=== PATIENT | male | born 1950 | race Caucasian/White ===

== ENCOUNTER → 2017-03-17 | Outpatient (CLI) | payer OTHER | LOC: BRMIMAGING 08:33 | PROVIDERS: ATTEND Internal Medicine | DX: M19.041 Primary osteoarthritis, right hand (principal); M19.042 Primary osteoarthritis, left hand | CPT/HCPCS: 73130-PO ==

== ENCOUNTER 2017-07-02 09:12 | Day surgery (SDC) | payer OTHER ==
[2017-07-02] MEDS ORDERED: FAMOTIDINE 20 MG TAB PO ONE (09:19)
[2017-07-02] MEDS ORDERED: diphenhydrAMINE 25 MG CAP PO ONE ×2 (09:19→09:34)
[2017-07-02] MEDS ORDERED: NS 1,000 ML IV ONE (09:19)
[2017-07-02] MEDS ORDERED: ASPIRIN EC 325 MG TAB PO ONE ×2 (09:19→09:34)
[2017-07-02] MEDS ORDERED: DIAZEPAM 5 MG TAB PO ONE (09:19)
--- NOTE | 2017-07-02 09:29 | CPEKG ---
Heart Rate: 70 RR Interval: 857 P-R Interval: 160 QRSD Interval: 82 QT Interval: 348 QTC Interval: 376 P [place]: 54 QRS [place]: 31 T Wave [place]: -15 EKG Severity - BORDERLINE ECG - EKG Impression: SINUS RHYTHM EKG Impression: BORDERLINE T ABNORMALITIES, DIFFUSE LEADS Electronically Signed By: Saji Dempsey 03-Jul-2017 13:11:59
[2017-07-02] MEDS ORDERED: FAMOTIDINE 20 MG TAB ONE (09:34)
[2017-07-02] MEDS ORDERED: DIAZEPAM 5 MG TAB ONE (09:34)
[2017-07-02 09:53] LABS: % IMMATURE GRANULYOCYTES 0.6 % (0.0-1.1); ABSOLUTE IMMATURE GRANULOCYTES 0.03 10^3/uL (0.00-0.10); ADD DIFF? NO; ADD MORPH? NO; ADD SCAN? NO; ATYPICAL LYMPHOCYTE FLAG 0 (0-99); FRAGMENT RBC FLAG 0 (0-99); HEMATOCRIT 44.7 % (40.0-51.0); LEFT SHIFT FLG 0 (0-99); LIPEMIA HEMOLYSIS FLAG 90 (0-99); MEAN CELL HEMOGLOBIN 31.1 pg (27.9-34.1); MEAN CELL HEMOGLOBIN CONCENTR. 35.8 g/dL (32.4-36.7); MEAN PLATELET VOLUME 9.6 fL (8.7-11.7); PLATELET CLUMPS FLAG 0 (0-99); PLATELET COUNT 164 10^3/uL (150-400); RED BLOOD CELL COUNT 5.14 10^6/uL (4.40-6.38); RED CELL DISTRIBUTION WIDTH 12.5 % (11.5-15.2)
[2017-07-02 10:02] LABS: INR 1.03 (0.83-1.16); PROTIME(PATIENT) 13.4 SEC (12.0-15.0)
[2017-07-02] MEDS ORDERED: fentaNYL 100 MCG/2 ML INJ ONE ×2 (10:09→12:05)
[2017-07-02] MEDS ORDERED: LIDOCAINE 1% 300 MG/30 ML SDV ONE (10:09)
[2017-07-02] MEDS ORDERED: MIDAZOLAM 2 MG/2 ML VIAL ONE ×2 (10:09→11:51)
[2017-07-02] MEDS ORDERED: IOPAMIDOL (ISOVUE-370) 150 ML BTL IV ONE (10:10)
[2017-07-02 10:17] LABS: ANION GAP 10 mEq/L (8-16); CARBON DIOXIDE 20 mEq/l (22-31); CHLORIDE 110 mEq/L (97-110); CHOLESTEROL 164 mg/dL (140-220); CHOLESTEROL/HDL RATIO 3.64 RATIO (1.00-4.97); GLOMERULAR FILTRATION RATE > 60; GLUCOSE 102 mg/dL (70-100); HIGH DENSITY LIPOPROTEIN 45 mg/dL (40-65); LOW DENSITY LIPOPROTEIN 99 mg/dL (80-100); MAGNESIUM 2.1 mg/dL (1.6-2.3); NON-HIGH DENSITY LIPOPROTEIN 119 mg/dL (90-129); POTASSIUM 4.6 mEq/L (3.5-5.2); SODIUM 140 mEq/L (134-144); TRIGLYCERIDE 104 mg/dL (40-150); VERY LOW DENSITY LIPOPROTEINS 20 mg/dL (8-25)
--- NOTE | 2017-07-02 10:54 | PDPROPOC ---
Sedation Plan of Care Sedation Plan of Care: vital signs stable, mental status noted, patient educated of risks, benefits, alternatives, patient can tolerate sedation ASA Classification: ASA 2 Planned drugs: fentanyl, midazolam Mallampati Score: Class 2 Mallampati Reference Image: Patient passed 3-3-2 rule?: Yes
--- NOTE | 2017-07-02 10:54 | PDGENHP ---
History & Physical History of Present Illness: 65 year old with hx of CAD with PCI to the RCA in 2008 with new, moderate area of ischemia in the inferior wall coupled with abnormal ecg changes with exercise. Pertinent Past, Social, Family History: PMH: CAD, HTN, Hyperlipidemia Relevant Physical Exam: Awake, alert, appropriate.
[2017-07-02] MEDS ORDERED: HEPARIN 10,000 UNIT/10 ML MDV ONE (12:01)
[2017-07-02] MEDS ORDERED: VERAPAMIL 5 MG/2 ML VIAL ONE (12:01)
[2017-07-02] MEDS ORDERED: ATROPINE SULFATE 1 MG/10 ML SYR IVP PRN (13:40)
[2017-07-02] MEDS ORDERED: ONDANSETRON 4 MG/2 ML VIAL IVP PRN (13:40)
[2017-07-02] MEDS ORDERED: NITROGLYCERIN 0.4 MG BTL SL PRN (13:40)
--- NOTE | 2017-07-02 23:06 | CPIP ---
[f rep st] INVASIVE CARDIAC PROCEDURE PROCEDURE PERFORMED: Diagnostic left heart catheterization. INDICATION FOR PROCEDURE: Known history of coronary artery disease with high risk findings on exerci se nuclear stress test, including 1-[address]-segment depression and new evidence of anterior ischemia in the apical, mid and basal wall, which has changed [facility] with previous PCI to the RCA in 2008. DETAILS OF PROCEDURE: After informed consent was obtained, patient was brought to the cardiac cathet erization lab where he was prepped and draped in a sterile fashion. Access to the right common femor al artery was obtained; however, a wire was unable to be threaded. Several attempts were made, unsuc cessfully. Attempts were made to cannulate the left common femoral artery. This artery was successf ully cannulated. Again, wire was unable to be threaded. Access site was changed to the left radial artery. After Chad test was performed, the artery was prepped and draped in a sterile fashion. A 5 -Romansh sheath was placed in the right common femoral artery without complications. A JR3.5 was used to cannulate the right coronary artery. Images were obtained in multiple projections. The JR3.5 was exchanged over a guidewire for a JL3.5. This was used to cannulate the left main. I mages of the left coronary anatomy were obtained in multiple projections. JL3.5 catheter was exchang ed over a guidewire. With attempts to perform pigtail catheterization there was resistance on the wi re and further attempts at pigtail catheterization were aborted. FINDINGS: 1. Left main, normal size and caliber. It bifurcates into a left anterior descending and left circu mflex coronary artery. There is no evidence of coronary disease within the left main. 2. Left anterior descending artery demonstrates mild luminal irregularities with no evidence of flow -limiting stenosis. 3. The circumflex vessel gives rise to a moderate-size first obtuse marginal branch. There are mild luminal irregularities within the circumflex vessel and obtuse marginal branch. No flow-limiting co ronary disease. 4. Right coronary artery is a large-caliber, dominant vessel that bifurcates into PDA and PLV branch . There are mild luminal irregularities throughout the vessel. There is approximately a 10% to 20% in-stent stenosis in the mid right coronary artery with no evidence of flow-limiting coronary artery disease. CONCLUSION: 1. Patent stents to the right coronary artery. 2. Mild luminal irregularities. 3. No flow-limiting coronary artery disease. PLAN: Continue optimal medical management. 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 /[id number]/MODL
== END 2017-07-02 16:34 | disposition home or self-care (01) ==
LOC: FCATH 09:12
PROVIDERS: ATTEND Internal Medicine Cardiovascular Disease
PROC: B2111ZZ Fluoroscopy of Multiple Coronary Arteries using Low Osmolar Contrast (ICD-10-PCS; principal; 2017-07-02)
PROC: 4A023N7 Measurement of Cardiac Sampling and Pressure, Left Heart, Percutaneous Approach (ICD-10-PCS; principal; 2017-07-02)
DX: R94.31 Abnormal electrocardiogram [ECG] [EKG] (principal); I25.10 Atherosclerotic heart disease of native coronary artery without angina pectoris; Z95.5 Presence of coronary angioplasty implant and graft; I10 Essential (primary) hypertension; E78.5 Hyperlipidemia, unspecified
CPT/HCPCS: 93005; 93454; C1769; J1644; J2250; J3010; Q9967

== ENCOUNTER → 2017-11-12 | Outpatient (CLI) | payer OTHER | LOC: BRMIMAGING 11:00 | PROVIDERS: ATTEND Family Medicine | DX: J44.9 Chronic obstructive pulmonary disease, unspecified (principal) | CPT/HCPCS: 71046-PO ==

== ENCOUNTER → 2017-12-30 | Outpatient (CLI) | payer OTHER | LOC: BRMIMAGING 14:10 | PROVIDERS: ATTEND Family Medicine | DX: J40 Bronchitis, not specified as acute or chronic (principal) | CPT/HCPCS: 71046-PO ==

== ENCOUNTER → 2018-06-16 | Outpatient (CLI) | payer OTHER | LOC: BHLMT 13:30 | PROVIDERS: ATTEND Internal Medicine Interventional Cardiology | DX: I25.10 Atherosclerotic heart disease of native coronary artery without angina pectoris (principal); I77.810 Thoracic aortic ectasia; E78.00 Pure hypercholesterolemia, unspecified | CPT/HCPCS: 93005-PO ==

== ENCOUNTER → 2018-06-18 | Outpatient (CLI) | payer OTHER | LOC: BHFA 09:30 | PROVIDERS: ATTEND Internal Medicine Cardiovascular Disease | DX: I25.10 Atherosclerotic heart disease of native coronary artery without angina pectoris (principal); I77.810 Thoracic aortic ectasia ==

== ENCOUNTER → 2018-07-16 | Outpatient (CLI) | payer OTHER | LOC: BHLMT 13:15 | PROVIDERS: ATTEND Internal Medicine Cardiovascular Disease | DX: I25.10 Atherosclerotic heart disease of native coronary artery without angina pectoris (principal); R94.31 Abnormal electrocardiogram [ECG] [EKG] | CPT/HCPCS: 93017-PO; 93350-PO ==

== ENCOUNTER → 2018-08-14 | Outpatient (CLI) | payer OTHER | LOC: BHLMT 10:00 | PROVIDERS: ATTEND Internal Medicine Cardiovascular Disease | DX: R94.31 Abnormal electrocardiogram [ECG] [EKG] (principal); R94.39 Abnormal result of other cardiovascular function study | CPT/HCPCS: 93306-PO ==